=== PATIENT | male | born 1950 | race Caucasian/White ===

== ENCOUNTER 2016-11-06 08:56 | Outpatient (CLI) | payer OTHER ==
--- NOTE | 2016-11-06 10:22 | DIAGNOSTIC IMAGING REPORT ---
PROCEDURE: CT THORAX WITH CONTRAST INDICATION: DYSPNEA TECHNIQUE: 125 ml of Isovue 300 was injected intravenously and axial images were obtained of the chest with coronal and sagittal reformations. COMPARISON: None. FINDINGS: Hyperinflation. 7 mm peripheral right lower lobe nodule (image 28), 3 mm right upper lobe nodule (image 35), 3.5 mm peripheral left lower lobe nodule (image 37) and 5 mm peripheral left lower lobe nodule (image 47). Normal airways. Minor emphysematous changes. No adenopathy or effusion. Mild atherosclerosis of the aorta. Moderate coronary atherosclerosis. Normal heart size. No pericardial effusion. Small left renal cyst. Mild degenerative changes of the spine. IMPRESSION: 1. Small nonspecific bilateral pulmonary nodules. Recommend follow-up chest CT scan in 6 months. 2. Mild emphysema 3. Coronary atherosclerosis
== END 2016-11-07 15:44 | disposition home or self-care (01) ==
LOC: CT SRH 08:56
DX: R91.1 Solitary pulmonary nodule (principal); I25.10 Atherosclerotic heart disease of native coronary artery without angina pectoris